=== PATIENT | male | born 2000 | race Caucasian/White ===

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

== ENCOUNTER 2022-05-21 13:43 | Outpatient (CLI) | payer OTHER ==
[~2022-05-21] VITALS: Ht 180.3 cm; Wt 113.6 kg
[2022-05-21] MEDS ORDERED: NS IV 1000 ML 1,000 ML ONE (13:50)
[2022-05-21] MEDS: NS IV 1000 ML 1,000 ML IV ONE (13:57)
[2022-05-21 15:00] VITALS: BP 119/66
== END 2022-05-21 15:02 ==
LOC: SDC 13:43
PROVIDERS: ATTEND Family Medicine
DX: E86.0 Dehydration (principal)
CPT/HCPCS: 96360

== ENCOUNTER → 2023-09-10 | Outpatient (CLI) | payer OTHER ==
[2023-09-10 11:38] LABS: BASOPHILS # (AUTO) 0.1 10^3/uL (0.0-0.1); BASOPHILS % (AUTO) 1 % (0-10); EOSINOPHILS # (AUTO) 0.1 10^3/uL (0.0-0.3); EOSINOPHILS % (AUTO) 1 % (0-10); HEMATOCRIT 44 % (40-54); HEMOGLOBIN 15.1 g/dL (13.3-17.7); LYMPHOCYTES # (AUTO) 3.1 10^3/uL (1.0-4.0); LYMPHOCYTES % (AUTO) 29 % (12-44); MEAN CORPUSCULAR HEMOGLOBIN 28 pg (25-34); MEAN CORPUSCULAR HGB CONC 34 g/dL (32-36); MEAN CORPUSCULAR VOLUME 82 fL (80-99); MEAN PLATELET VOLUME 9.5 fL (9.0-12.2); MONOCYTES # (AUTO) 0.7 10^3/uL (0.0-1.0); MONOCYTES % (AUTO) 7 % (0-12); NEUTROPHILS # (AUTO) 6.7 10^3/uL (1.8-7.8); NEUTROPHILS % (AUTO) 62 % (42-75); PLATELET COUNT 298 10^3/uL (130-400); WHITE BLOOD COUNT 10.7 10^3/uL (4.3-11.0)
[2023-09-10 11:48] LABS: CHLORIDE 104 MMOL/L (98-107); POTASSIUM 4.1 MMOL/L (3.6-5.0); SODIUM 138 MMOL/L (135-145)
[2023-09-10 11:49] LABS: ALBUMIN 4.7 GM/DL (3.2-4.5)
[2023-09-10 11:50] LABS: CALCIUM 9.5 MG/DL (8.5-10.1); TRIGLYCERIDES 136 MG/DL (<150); VLDL CHOLESTEROL 27 MG/DL (5-40)
[2023-09-10 11:51] LABS: GLUCOSE 91 MG/DL (70-105); TOTAL PROTEIN 7.9 GM/DL (6.4-8.2)
[2023-09-10 11:52] LABS: CARBON DIOXIDE 26 MMOL/L (21-32)
[2023-09-10 11:55] LABS: ALKALINE PHOSPHATASE 64 U/L (40-136); CHOLESTEROL 204 MG/DL (< 200); CREATININE SERUM 1.05 MG/DL (0.60-1.30); GFR ESTIMATED 104
[2023-09-10 11:56] LABS: BUN/CREATININE RATIO 13
[2023-09-10 11:57] LABS: HDL CHOLESTEROL 42 MG/DL (40-60)
[2023-09-10 11:58] LABS: ALANINE AMINOTRANSFERASE 48 U/L (0-55)
== END ==
LOC: LAB 11:19
PROVIDERS: ATTEND Nurse Practitioner Family
DX: I10 Essential (primary) hypertension (principal)
CPT/HCPCS: 36415; 80053; 80061; 85025